=== PATIENT | female | born 1980 | race Caucasian/White ===

== ENCOUNTER → 2017-02-09 | Outpatient (REF) | payer BC, OTHER | LOC: M LAB REF 16:35 | PROVIDERS: ATTEND Physician Assistant | DX: J02.9 Acute pharyngitis, unspecified (principal) ==

== ENCOUNTER → 2018-03-18 | Outpatient (CLI) | payer BC, OTHER | LOC: M WHC 13:52 | DX: N94.10 Unspecified dyspareunia (principal) ==

== ENCOUNTER 2018-05-27 05:59 | Day surgery (SDC) | payer BC, OTHER ==
[2018-05-27] MEDS ORDERED: ceFAZolin 2 GM/D5W 50 ML IV BAG (J0690 PER 500MG) As Ordered (06:18)
[2018-05-27] MEDS: LR 1,000 ML IV ×4 (06:25→19:47)
[2018-05-27 06:42] LABS: CONTROL LINE UCG INT CTR LINE PRESENT; URINE PREG TEST NEGATIVE (NEGATIVE)
[2018-05-27 06:47] LABS: HEMATOCRIT 40.3 % (36.0-47.0); HEMOGLOBIN 14.2 g/dl (12.0-15.5); MEAN CORPUSCULAR HEMOGLOBIN 31.6 pg (27.0-33.0); MEAN CORPUSCULAR HGB CONC 35.2 g/dl (32.0-36.5); MEAN CORPUSCULAR VOLUME 89.6 fl (80.0-96.0); PLATELET COUNT, AUTOMATED 236 10^3/uL (150-450); RED CELL DISTRIBUTION WIDTH 12.9 % (11.5-14.5); WHITE BLOOD COUNT 10.4 10^3/uL (4.0-10.0)
[2018-05-27] MEDS ORDERED: KETOROLAC 60 MG/2 ML VIAL (J1885) As Ordered (07:49)
[2018-05-27] MEDS ORDERED: MIDAZOLAM INJ 2 MG/2 ML VIAL (J2250) As Ordered (07:49)
[2018-05-27] MEDS ORDERED: fentaNYL 250 MCG/5 ML INJECTION (J3010) As Ordered (07:49)
[2018-05-27] MEDS ORDERED: dexameTHASONE 4 MG/ML 1ML VIAL (J1100) As Ordered (07:49)
[2018-05-27] MEDS ORDERED: LIDOCAINE 2% INJ 100 MG/5 ML SDV (FOR ANES.) As Ordered (07:49)
[2018-05-27] MEDS ORDERED: ROCURONIUM BROMIDE 50 MG/5 ML VIAL As Ordered (07:49)
[2018-05-27] MEDS ORDERED: PROPOFOL 200 MG/20 ML VIAL As Ordered ×2 (07:49→15:02)
[2018-05-27] MEDS ORDERED: HYDROmorphone HCL 2 MG/ML 1ML VIAL (J1170) As Ordered (07:49)
[2018-05-27] MEDS ORDERED: ONDANSETRON 4MG/2ML VIAL (J2405) As Ordered (07:49)
[2018-05-27] MEDS ORDERED: NEOSTIGMINE 10 MG/10 ML VIAL (J2710) As Ordered (07:50)
[2018-05-27] MEDS ORDERED: GLYCOPYRROLATE INJ 0.2 MG/ML 2 ML VIAL As Ordered ×2 (07:50)
[2018-05-27] MEDS ORDERED: ePHEDrine SULFATE 25 MG/5 ML(5MG/ML) SYRINGE As Ordered (07:54)
[2018-05-27] MEDS ORDERED: MORPHINE 1MG/ML IN 0.9% NACL 100ML IV BAG As Ordered (09:10)
[2018-05-27] MEDS ORDERED: IBUPROFEN 600 MG TAB PO (09:30)
[2018-05-27] MEDS ORDERED: fentaNYL 100 MCG/2 ML INJECTION (J3010) IV (09:30)
[2018-05-27] MEDS ORDERED: NALBUPHINE HCL 10 MG/ML AMP (J2300) IV (09:30)
[2018-05-27] MEDS ORDERED: NALOXONE INJ 0.4 MG/1 ML VIAL (J2310) IV (09:30)
[2018-05-27] MEDS ORDERED: PERCOCET 5MG/325MG TAB PO (09:30)
[2018-05-27] MEDS ORDERED: diphenhydrAMINE INJ 50MG/ML VIAL (J1200) IV (09:30)
[2018-05-27] MEDS ORDERED: EPIDURAL/PCA KEYS XX (09:30)
[2018-05-27] MEDS: MORPHINE 1MG/ML IN 0.9% NACL 100ML IV BAG IV (09:35)
[2018-05-27] MEDS: ONDANSETRON 4MG/2ML VIAL (J2405) IV (09:37)
[2018-05-27] MEDS: clonazePAM 0.5 MG TAB PO (12:40)
[2018-05-27] MEDS: lamoTRIgine 100MG TAB PO (12:41)
[2018-05-27] MEDS: hydrOXYzine 50 MG TAB PO (21:00)
[2018-05-28] MEDS: LR 1,000 ML IV (02:53)
[2018-05-28 06:37] LABS: HEMATOCRIT 37.5 % (36.0-47.0); MEAN CORPUSCULAR HEMOGLOBIN 31.3 pg (27.0-33.0); MEAN CORPUSCULAR HGB CONC 34.7 g/dl (32.0-36.5); MEAN CORPUSCULAR VOLUME 90.4 fl (80.0-96.0); PLATELET COUNT, AUTOMATED 208 10^3/uL (150-450); RED BLOOD COUNT 4.15 10^6/uL (4.00-5.40); RED CELL DISTRIBUTION WIDTH 13.2 % (11.5-14.5); WHITE BLOOD COUNT 18.7 10^3/uL (4.0-10.0)
[2018-05-28] MEDS: NORCO, ANEXSIA 5/325MG TABLET (HYDROcodone/ACETAMINOPHEN) PO (08:31)
== END 2018-05-28 08:37 | disposition home or self-care (01) ==
LOC: M SDC 05:59 → M PED 10:02
DX: N94.10 Unspecified dyspareunia (principal); N92.0 Excessive and frequent menstruation with regular cycle; F41.9 Anxiety disorder, unspecified
CPT/HCPCS: 58262

== ENCOUNTER → 2019-02-18 | Outpatient (REF) | payer BC, OTHER ==
[~2019-02-18] MED LIST: BUPR1TAB52 PO; CLON1TAB8 PO; LAMI1TAB7 PO
[2019-02-22 14:13] LABS: HPV HYBRID CAPTURE II Negative (Negative)
== END ==
LOC: M SFHCWAGY 12:04
PROVIDERS: ATTEND Nurse Practitioner Women's Health
DX: Z12.4 Encounter for screening for malignant neoplasm of cervix (principal)
CPT/HCPCS: 87624; G0123

== ENCOUNTER → 2019-09-19 | Outpatient (CLI) | payer BC, OTHER ==
[2019-09-19 17:48] LABS: FREE T4 0.88 NG/DL (0.76-1.46); THYROID STIMULATING HORMONE 1.7 uIU/ML (0.358-3.740)
[2019-09-19 17:49] LABS: LUTEINIZING HORMONE 8.2 mIU/mL
== END ==
LOC: M PLALAB 12:10
PROVIDERS: ATTEND Nurse Practitioner Women's Health
DX: R45.86 Emotional lability (principal)

== ENCOUNTER → 2019-09-19 | Outpatient (REF) | payer BC, OTHER | LOC: M PLALAB 11:52 | PROVIDERS: ATTEND Nurse Practitioner Women's Health | DX: R45.86 Emotional lability (principal) ==

== ENCOUNTER → 2019-09-26 | Outpatient (CLI) | payer BC, OTHER ==
--- NOTE | 2019-09-26 12:40 | REP ---
PELVIS ULTRASOUND: Real-time sonographic evaluation of the pelvis performed utilizing transabdominal and endovaginal technique. The patient has had a prior hysterectomy and left oophorectomy May 2018. Bladder measures 8.9 x 8.0 x 8.2 cm. Right ovary is visualized and measures 4.5 x 1.0 x 2.9 cm. A hypoechoic nodule associated with the right ovary measures 1.6 x 1.2 x 1.3 cm likely representing a complex dominant follicle. There is no evidence of right ovarian torsion with duplex Doppler evaluation, RI 0.53. No free fluid is seen. No left adnexal mass is seen. IMPRESSION: Status post hysterectomy and left oophorectomy. Right ovary demonstrates no torsion. There is a hypoechoic nodule of the right ovary 1.6 cm maximally likely representing a complex dominant follicle. No other evidence of mass or free fluid. Electronically Signed by Brandt Jimenes MD 09/26/2019 01:05 P
== END ==
LOC: M RAD 11:17
PROVIDERS: ATTEND Nurse Practitioner Women's Health
DX: N94.10 Unspecified dyspareunia (principal)

== ENCOUNTER → 2019-09-30 | Outpatient (REF) | payer BC, OTHER | LOC: M LAB REF 13:35 | PROVIDERS: ATTEND Family Medicine | DX: N39.0 Urinary tract infection, site not specified (principal) ==

== ENCOUNTER → 2020-09-24 | Outpatient (CLI) | payer BC, OTHER ==
--- NOTE | 2020-09-24 11:36 | REPMRS ---
Patient History The patient states she had a clinical breast exam in 2019. Patient is postmenopausal. No known family history of cancer. Digital Woman Screen Mammo: September 24, 2020 - Exam #: [id number] Bilateral CC and MLO view(s) were taken. Technologist: Eileen Lobo, Technologist No prior studies available for comparison. FINDINGS: The breast tissue is heterogeneously dense. This may lower the sensitivity of mammography. The Volpara volumetric breast density category is: C. There is a moderate amount of heterogeneously dense fibroglandular tissue which is fairly symmetric. There is no interval development of dominant mass, architectural distortion, or grouped microcalcification typical of malignancy. There has been no change in the appearance of the mammogram from the prior studies. 3-D tomosynthesis shows no additional findings. Assessment: BI-RADS/ACR category 1 mammogram. Negative Mammogram. Recommendation Routine screening mammogram of both breasts in 1 year (for women over age 40). This patient's Lifetime Breast Cancer RIsk is estimated at 7.0 %. This mammogram was interpreted with the aid of an FDA-approved computer-aided dectection system. Electronically Signed By: Solomon Rowe MD 09/24/20 [id number]
== END ==
LOC: M WHC 10:46
PROVIDERS: ATTEND Nurse Practitioner Family
DX: Z12.31 Encounter for screening mammogram for malignant neoplasm of breast (principal)

== ENCOUNTER → 2021-10-07 | Outpatient (REF) | payer BC, OTHER | LOC: M SFHCWAGY 17:18 | PROVIDERS: ATTEND Nurse Practitioner Women's Health | DX: Z12.4 Encounter for screening for malignant neoplasm of cervix (principal) ==

== ENCOUNTER 2023-04-20 15:07 | Emergency (ER) | payer BC, OTHER ==
[~2023-04-20] VITALS: Ht 167.6 cm; Wt 59.1 kg
[2023-04-20] MEDS ORDERED: CLON2TAB7 (15:19)
[2023-04-20] MEDS ORDERED: HYDR-3363 (15:19)
[2023-04-20] MEDS ORDERED: AMPHET/DEXTR (15:19)
[2023-04-20 15:57] LABS: HEMATOCRIT 42.8 % (36.0-47.0); HEMOGLOBIN 14.9 g/dl (12.0-15.5); MEAN CORPUSCULAR HEMOGLOBIN 30.8 pg (27.0-33.0); MEAN CORPUSCULAR HGB CONC 34.8 g/dl (32.0-36.5); MEAN CORPUSCULAR VOLUME 88.6 fl (80.0-96.0); PLATELET COUNT, AUTOMATED 264 10^3/uL (150-450); RED BLOOD COUNT 4.83 10^6/uL (4.00-5.40); WHITE BLOOD COUNT 15.4 10^3/uL (4.0-10.0)
[2023-04-20 16:23] LABS: ETHYL ALCOHOL (ETHANOL) < 0.003 % (0.000-0.010)
[2023-04-20 16:24] LABS: ACETAMINOPHEN LEVEL < 2.0 UG/ML (10.0-20.0); SALICYLATE LEVEL < 3.0 MG/DL (<30)
[2023-04-20 16:25] LABS: ALBUMIN 4.5 G/DL (3.2-5.2); ALKALINE PHOSPHATASE 73 U/L (46-116); ALT/SGPT 21 U/L (7.0-40); AST/SGOT 18 U/L (<34); BILIRUBIN,DIRECT 0.3 MG/DL (<0.4); BILIRUBIN,TOTAL 0.7 MG/DL (0.3-1.2); BLOOD UREA NITROGEN 14 MG/DL (9-23); CALCIUM LEVEL 9.8 MG/DL (8.5-10.1); CARBON DIOXIDE LEVEL 24 MMOL/L (20-31); CHLORIDE LEVEL 105 MMOL/L (98-107); CREATININE FOR GFR 0.86 MG/DL (0.55-1.30); GLOMERULAR FILTRATION RATE > 60.0 (>58); GLUCOSE, FASTING 129 MG/DL (60-100); POTASSIUM SERUM 3.2 MMOL/L (3.5-5.1); SODIUM LEVEL 138 MMOL/L (136-145); TOTAL PROTEIN 7.3 G/DL (5.7-8.2)
[2023-04-20 16:27] LABS: THYROID STIMULATING HORMONE 3.352 uIU/ML (0.55-4.78)
[2023-04-20 16:36] LABS: HCG, SERUM QUALITATIVE NEGATIVE (NEGATIVE)
[2023-04-20] MEDS ORDERED: POTASSIUM CHLORIDE 10MEQ SR TABLET PO ONE (16:50)
[2023-04-20 18:27] LABS: BARBITURATES URINE NEGATIVE (NEGATIVE); BENZODIAZEPINES URINE NEGATIVE (NEGATIVE); METHADONE URINE NEGATIVE (NEGATIVE); OPIATES URINE NEGATIVE (NEGATIVE); PHENCYCLIDINE URINE NEGATIVE (NEGATIVE)
[2023-04-20 18:32] LABS: AMPHETAMINES LEVEL URINE POSITIVE (NEGATIVE); CANNABINOIDS URINE POSITIVE (NEGATIVE); COCAINE METABOLITE URINE POSITIVE (NEGATIVE)
[2023-04-20 19:39] VITALS: BP 128/85; TEMP 98; O2SAT 100
== END 2023-04-20 19:42 | disposition home or self-care (01) ==
LOC: M ED 15:07
DX: Z04.6 Encounter for general psychiatric examination, requested by authority (principal); F63.81 Intermittent explosive disorder; F32.A Depression, unspecified; F41.9 Anxiety disorder, unspecified; F12.90 Cannabis use, unspecified, uncomplicated; Z79.899 Other long term (current) drug therapy

== ENCOUNTER → 2024-06-07 | Outpatient (CLI) | payer BC, OTHER ==
[~2024-06-07] MED LIST changes: +AMPHET/DEXTR; +CLON2TAB7; +HYDR-3363
[2024-06-07 13:10] LABS: BASO # 0.1 10^3/uL (0.0-0.2); BASO % 0.7 % (0.0-1.0); EOS # 0.1 10^3/uL (0.0-0.5); EOS % 1.3 % (0.0-3.0); HEMATOCRIT 43.3 % (36.0-47.0); HEMOGLOBIN 14.5 g/dl (12.0-15.5); LYMPH # 2.6 10^3/uL (1.5-5.0); LYMPH % 27.9 % (24.0-44.0); MEAN CORPUSCULAR HEMOGLOBIN 31.7 pg (27.0-33.0); MEAN CORPUSCULAR HGB CONC 33.5 g/dl (32.0-36.5); MEAN CORPUSCULAR VOLUME 94.5 fl (80.0-96.0); MONO # 0.6 10^3/uL (0.0-0.8); MONO % 6.5 % (2.0-8.0); NEUTROPHILS # 5.9 10^3/uL (1.5-8.5); NEUTROPHILS % 63.4 % (36.0-66.0); PLATELET COUNT, AUTOMATED 260 10^3/uL (150-450); RED BLOOD COUNT 4.58 10^6/uL (4.00-5.40); WHITE BLOOD COUNT 9.4 10^3/uL (4.0-10.0)
[2024-06-07 13:34] LABS: ALBUMIN 4.3 G/DL (3.2-5.2); ALKALINE PHOSPHATASE 82 U/L (46-116); ALT/SGPT 27 U/L (7.0-40); AST/SGOT 14 U/L (<34); BILIRUBIN,TOTAL 0.4 MG/DL (0.3-1.2); BLOOD UREA NITROGEN 13 MG/DL (9-23); CALCIUM LEVEL 9.3 MG/DL (8.5-10.1); CARBON DIOXIDE LEVEL 28 MMOL/L (20-31); CHLORIDE LEVEL 109 MMOL/L (98-107); CHOLESTEROL LEVEL 130 MG/DL (<200); CHOLESTEROL RISK RATIO 2.05 (<5); CREATININE FOR GFR 0.58 MG/DL (0.55-1.30); GLOMERULAR FILTRATION RATE > 60.0 (>58); GLUCOSE, FASTING 82 MG/DL (60-100); HDL CHOLESTEROL 63.4 MG/DL (>40); IRON (FE) 45 UG/DL (50-170); LDL CHOLESTEROL 52.6 MG/DL (<100); MAGNESIUM LEVEL 1.8 MG/DL (1.8-2.4); NON-HDL-C 66.6 MG/DL; PERCENT SATURATION 13.7 % (13.2-45.0); POTASSIUM SERUM 3.5 MMOL/L (3.5-5.1); SODIUM LEVEL 140 MMOL/L (136-145); TOTAL IRON BINDING CAPACITY 329 UG/DL (250-425); TOTAL PROTEIN 6.9 G/DL (5.7-8.2); TRIGLYCERIDES LEVEL 70 MG/DL (<150)
[2024-06-07 13:35] LABS: THYROXINE (T4) 5.1 UG/DL (4.5-10.9)
[2024-06-07 13:36] LABS: FERRITIN 105.6 NG/ML (7.3-270.7); FREE T4 1.03 NG/DL (0.89-1.76); THYROID STIMULATING HORMONE 2.163 uIU/ML (0.55-4.78); VITAMIN B12 LEVEL 519 PG/ML (211-911)
== END ==
LOC: M WUC 09:03
PROVIDERS: ATTEND Nurse Practitioner Psychiatric/Mental Health
DX: Z79.899 Other long term (current) drug therapy (principal)

== ENCOUNTER 2024-06-24 00:44 | Emergency (ER) | payer BC, OTHER ==
[~2024-06-24] VITALS: Ht 165.1 cm; Wt 59.1 kg
[2024-06-24] MEDS: MORPHINE 4 MG/ML 1ML VIAL IV ONE (01:40)
[2024-06-24] MEDS: HYDROMORPHONE HCL 0.5 MG/ 0.5 ML SYRINGE IV PRN (02:01)
[2024-06-24 02:07] LABS: BASO # 0.1 10^3/uL (0.0-0.2); BASO % 0.5 % (0.0-1.0); EOS # 0.1 10^3/uL (0.0-0.5); EOS % 0.5 % (0.0-3.0); HEMATOCRIT 40.3 % (36.0-47.0); HEMOGLOBIN 14.2 g/dl (12.0-15.5); LYMPH # 2.7 10^3/uL (1.5-5.0); LYMPH % 12.5 % (24.0-44.0); MEAN CORPUSCULAR HEMOGLOBIN 32.2 pg (27.0-33.0); MEAN CORPUSCULAR HGB CONC 35.2 g/dl (32.0-36.5); MEAN CORPUSCULAR VOLUME 91.4 fl (80.0-96.0); MONO # 1.1 10^3/uL (0.0-0.8); NEUTROPHILS # 17.1 10^3/uL (1.5-8.5); NEUTROPHILS % 80.4 % (36.0-66.0); PLATELET COUNT, AUTOMATED 287 10^3/uL (150-450); RED BLOOD COUNT 4.41 10^6/uL (4.00-5.40); WHITE BLOOD COUNT 21.2 10^3/uL (4.0-10.0)
[2024-06-24 02:22] LABS: BLOOD UREA NITROGEN 17 MG/DL (9-23); CALCIUM LEVEL 9.7 MG/DL (8.5-10.1); CARBON DIOXIDE LEVEL 28 MMOL/L (20-31); CHLORIDE LEVEL 105 MMOL/L (98-107); CREATININE FOR GFR 0.82 MG/DL (0.55-1.30); GLOMERULAR FILTRATION RATE > 60.0 (>58); GLUCOSE, FASTING 76 MG/DL (60-100); POTASSIUM SERUM 3.3 MMOL/L (3.5-5.1); SODIUM LEVEL 140 MMOL/L (136-145)
[2024-06-24] MEDS ORDERED: HYDR-3713 PO (03:08)
[2024-06-24 03:30] VITALS: BP 164/107; TEMP 97.2
[2024-06-24] MEDS: NORCO 5/325MG TABLET (HOME DOSE PACK) PO ONE (04:08)
[2024-06-24 04:09] VITALS: O2SAT 100
[2024-06-24] MEDS: ANEXSIA, NORCO 7.5MG/325MG TABLET(HYDROCODONE/APAP) PO ONE (04:09)
== END 2024-06-24 04:34 | disposition home or self-care (01) ==
LOC: M ED 00:44
DX: S52.121A Displaced fracture of head of right radius, initial encounter for closed fracture (principal); S00.93XA Contusion of unspecified part of head, initial encounter; G40.909 Epilepsy, unspecified, not intractable, without status epilepticus; F90.9 Attention-deficit hyperactivity disorder, unspecified type; F41.9 Anxiety disorder, unspecified; Z79.1 Long term (current) use of non-steroidal anti-inflammatories (NSAID); Z79.899 Other long term (current) drug therapy
CPT/HCPCS: 70450; 70486; 72125; 73090; 80048; 85025; 86850; 86900; 86901; 96374; 96375; 99284; J1170

== ENCOUNTER 2024-06-29 11:57 | Day surgery (SDC) | payer BC, OTHER ==
[~2024-06-29] VITALS: Ht 165.1 cm; Wt 59.9 kg
[~2024-06-29 11:57] MED LIST changes: +HYDR-3713 PO
[2024-06-29] MEDS ORDERED: MIDAZOLAM INJ 2MG/2ML VIAL As Ordered ONE (12:05)
[2024-06-29] MEDS ORDERED: ACETAMINOPHEN 1000MG 100ML IV BAG As Ordered ONE (12:05)
[2024-06-29] MEDS ORDERED: KETOROLAC 60MG 2ML VIAL As Ordered ONE (12:05)
[2024-06-29] MEDS ORDERED: ONDANSETRON 4MG 2ML VIAL As Ordered ONE (12:05)
[2024-06-29] MEDS ORDERED: propofoL 200 MG/20 ML VIAL As Ordered ONE (12:05)
[2024-06-29] MEDS ORDERED: LIDOCAINE 2% 100MG/5ML SDV (FOR ANES.) As Ordered ONE (12:05)
[2024-06-29] MEDS ORDERED: fentaNYL 100 MCG/2 ML INJECTION As Ordered ONE (12:05)
[2024-06-29] MEDS: ceFAZolin 2 GM/D5W 50 ML IV BAG As Ordered ONE (13:10)
[2024-06-29] MEDS ORDERED: HYDR-3713 PO (14:16)
[2024-06-29] MEDS: ONDANSETRON 4MG 2ML VIAL IV PRN (14:29)
[2024-06-29] MEDS: fentaNYL 100 MCG/2 ML INJECTION IV PRN (14:30)
[2024-06-29] MEDS: oxyCODONE 5MG TAB PO PRN (14:30)
[2024-06-29] MEDS: dexAMETHasone 10MG/1ML VIAL PRES.FREE PN ONE (15:00)
[2024-06-29] MEDS: ROPIvacaine 0.5% 30ML VIAL PN ONE (15:00)
[2024-06-29 17:01] VITALS: BP 158/96; TEMP 97.9; O2SAT 98
== END 2024-06-29 17:08 | disposition home or self-care (01) ==
LOC: M SDC 11:57
PROVIDERS: ATTEND Orthopaedic Surgery
DX: S52.571A Other intraarticular fracture of lower end of right radius, initial encounter for closed fracture (principal); W19.XXXA Unspecified fall, initial encounter; Y93.9 Activity, unspecified; Y92.9 Unspecified place or not applicable
CPT/HCPCS: 25609; 76000; C1713; J0131; J0665; J0690; J1100; J1885; J2250; J2405; J3010

== ENCOUNTER → 2024-07-12 | Outpatient (CLI) | payer BC, OTHER | LOC: M SOG 14:34 | PROVIDERS: ATTEND Physician Assistant | DX: S52.571A Other intraarticular fracture of lower end of right radius, initial encounter for closed fracture (principal); W18.30XA Fall on same level, unspecified, initial encounter; Y92.009 Unspecified place in unspecified non-institutional (private) residence as the place of occurrence of the external cause ==

== ENCOUNTER → 2024-08-11 | Outpatient (CLI) | payer BC, OTHER | LOC: M SOG 07:24 | PROVIDERS: ATTEND Physician Assistant | DX: S52.571A Other intraarticular fracture of lower end of right radius, initial encounter for closed fracture (principal); W18.30XA Fall on same level, unspecified, initial encounter; Y92.009 Unspecified place in unspecified non-institutional (private) residence as the place of occurrence of the external cause ==

== ENCOUNTER → 2024-09-26 | Outpatient (CLI) | payer BC, OTHER | LOC: M SOG 07:57 | PROVIDERS: ATTEND Physician Assistant | DX: S52.571A Other intraarticular fracture of lower end of right radius, initial encounter for closed fracture (principal); W18.30XA Fall on same level, unspecified, initial encounter; Y92.009 Unspecified place in unspecified non-institutional (private) residence as the place of occurrence of the external cause ==

== ENCOUNTER → 2025-01-23 | Outpatient (CLI) | payer BC, OTHER | LOC: M PLAIMG 06:42 | PROVIDERS: ATTEND Physician Assistant | DX: M48.07 Spinal stenosis, lumbosacral region (principal); M43.17 Spondylolisthesis, lumbosacral region; M41.86 Other forms of scoliosis, lumbar region; M51.26 Other intervertebral disc displacement, lumbar region ==

== ENCOUNTER → 2025-01-24 | Outpatient (CLI) | payer BC, OTHER | LOC: M PLAIMG 06:41 | PROVIDERS: ATTEND Physician Assistant | DX: M25.562 Pain in left knee (principal); M25.572 Pain in left ankle and joints of left foot ==

== ENCOUNTER → 2025-08-09 | Outpatient (CLI) | payer BC, OTHER ==
[~2025-08-09] MED LIST changes: +BUPR-670 PO; -BUPR1TAB52 PO
[2025-08-09 19:16] LABS: BASO # 0.1 10^3/uL (0.0-0.2); BASO % 0.6 % (0.0-1.0); EOS # 0.1 10^3/uL (0.0-0.5); EOS % 1.2 % (0.0-3.0); LYMPH # 2.8 10^3/uL (1.5-5.0); LYMPH % 25.1 % (24.0-44.0); MONO # 0.6 10^3/uL (0.0-0.8); MONO % 5.2 % (2.0-8.0); NEUTROPHILS # 7.6 10^3/uL (1.5-8.5); NEUTROPHILS % 67.5 % (36.0-66.0); PLATELET COUNT, AUTOMATED 291 10^3/uL (150-450)
[2025-08-09 19:45] LABS: VALPROIC ACID (DEPAKOTE) < 3.0 UG/ML (50.0-100.0)
[2025-08-09 19:47] LABS: ALT/SGPT 30 U/L (7.0-40); AST/SGOT 24 U/L (<34); CALCIUM LEVEL 9.2 MG/DL (8.5-10.1); CARBON DIOXIDE LEVEL 26 MMOL/L (20-31); CHLORIDE LEVEL 106 MMOL/L (98-107); CREATININE FOR GFR 0.66 MG/DL (0.55-1.30); GLOMERULAR FILTRATION RATE > 90.0 (>58); POTASSIUM SERUM 4.1 MMOL/L (3.5-5.1); SODIUM LEVEL 144 MMOL/L (136-145)
[2025-08-09 19:49] LABS: TOTAL 25(OH) VITAMIN D 71.2 NG/ML (20.0-100.0)
[2025-08-09 20:09] LABS: ESTIMATED AVERAGE GLUCOSE 100.0 MG/DL (60-110)
== END ==
LOC: M PLALAB 15:40
PROVIDERS: ATTEND Nurse Practitioner Psychiatric/Mental Health
DX: F43.20 Adjustment disorder, unspecified (principal); F15.20 Other stimulant dependence, uncomplicated